=== PATIENT | female | born 1950 | race Caucasian/White ===

== ENCOUNTER 2017-06-11 20:19 | Emergency (ER) | payer OTHER ==
[~2017-06-11] VITALS: Ht 165.1 cm; Wt 74.4 kg
[~2017-06-11 20:19] MED LIST: AMLO-145 PO; BUPR150T11 PO; CYCL-319 PO; CYCL5TAB PO; HYDR-906 PO; IBUP-1542 PO; TEMA15CA6 PO; ZOF8 PO
[2017-06-11 20:29] VITALS: Ht 165.1 cm; Wt 74.4 kg
[2017-06-11] MEDS ORDERED: HYDROCODONE/APAP (5/325) TAB PO ONE (21:30)
[2017-06-11] MEDS ORDERED: IBUPROFEN 200 MG TAB PO ONE (21:30)
[2017-06-11] MEDS ORDERED: DIPHTH/TET/ACEL PERTUSS (ADULT) 0.5 ML VIAL IM* ONE (21:30)
--- NOTE | 2017-06-11 22:00 | RADRPT ---
PROCEDURE: XR Right Ankle. CLINICAL INDICATION: Trauma. Right ankle pain. TECHNIQUE: 3 views. Frontal, lateral, and oblique. COMPARISON: None. FINDINGS: There is an acute nondisplaced oblique fracture of the distal fibula with marked overlying soft tiss ue swelling. There is no other fracture and there is no dislocation. The soft tissues are otherwise normal. Articular surfaces are intact. There is no lytic or blastic lesion. There is no radiopaque foreign body. IMPRESSION: 1. Acute nondisplaced oblique fracture of the distal fibula with marked overlying soft tissue swell ing. 2. Otherwise unremarkable study. RPTAT: QQ .Jorge Luis Pendleton MD, MD Date Time Electronically viewed and signed by .Jorge Luis Pendleton MD, MD on 06/11/2017 22:00 .R/
--- NOTE | 2017-06-11 22:02 | RADRPT ---
PROCEDURE: XR Left Foot. CLINICAL INDICATION: Trauma. Left foot pain. TECHNIQUE: Three views. Frontal, lateral, and oblique. COMPARISON: None. FINDINGS: There is an acute minimally displaced fracture of the base of the fifth metatarsal. There is marked overlying soft tissue swelling. There is no other fracture and there is no dislocation. There is a small plantar calcaneal spur. Articular surfaces are otherwise intact. There is no lytic or blastic lesion. There is no radiopaque foreign body. IMPRESSION: 1. Acute minimally displaced fracture of the base of the fifth metatarsal with marked overlying sof t tissue swelling. 2. Small plantar calcaneal spur. 3. Otherwise unremarkable study. RPTAT: QQ .Jorge Luis Pendleton MD, MD Date Time Electronically viewed and signed by .Jorge Luis Pendleton MD, on 06/11/2017 22:02 .R/
[2017-06-11] MEDS ORDERED: HYDR-906 PO (22:17)
[2017-06-11] MEDS ORDERED: IBUP400T22 PO (22:17)
--- NOTE | 2017-06-11 22:24 | ERD ---
ER Documentation Chief Complaint Date/Time DATE: 06/11/17 TIME: 22:22 Chief Complaint s/p fall today, tripped, swollen right ankle, wound on right knee with pain HPI This 67-year-old female tripped after coming out of her doorway down some steps and complains of an abrasion on her right knee as well as right ankle pain and left foot pain. She has restricted range of motion weakness. There is no active bleeding. There is no history of head injury of neck pain or bowel bladder incontinence or additional injuries. ROS All systems reviewed and are negative except as per history of present illness. Medications Home Meds Active Scripts Hydrocodone/Acetaminophen (Belle 5-325 Tablet) 1 Each Tablet, 1 EACH PO QID, # 15 TAB Prov:RUSTY GOLDBERG MD 06/11/17 Ibuprofen* (Motrin*) 400 Mg Tab, 400 MG PO Q6, #20 TAB Prov:RUSTY GOLDBERG MD 06/11/17 Cyclobenzaprine Hcl* (Cyclobenzaprine Hcl*) 10 Mg Tablet, 10 MG PO TID, #15 TAB Prov:LAKEISHA WESLEY NP 09/02/16 Ibuprofen* (Motrin*) 600 Mg Tab, 600 MG PO Q6H Y for PAIN AND OR ELEVATED TEMP, #30 TAB Prov:LAKEISHA WESLEY NP 09/02/16 Hydrocodone/Acetaminophen (Belle 5-325 Tablet) 1 Each Tablet, 1 TAB PO Q6H Y for PAIN, #20 TAB Prov:LAKEISHA WESLEY NP 09/02/16 Reported Medications Amlodipine Besylate* (Amlodipine Besylate*) 5 Mg Tablet, 5 MG PO DAILY 12/22/14 Bupropion Hcl (Bupropion Hcl SR) 150 Mg Tablet.sa, 150 MG PO BID 12/22/14 Cyclobenzaprine Hcl* (Cyclobenzaprine Hcl*) 5 Mg Tablet, 5 MG PO QHS 12/22/14 Temazepam* (Restoril*) 15 Mg Capsule, 15 MG PO HS 12/22/14 Ondansetron Hcl* (Zofran*) 8 Mg Tab, 8 MG PO Q6H 12/22/14 Allergies Allergies: Coded Allergies: No Known Allergy (Unverified , 12/21/14) PMhx/Soc History of Surgery: Yes (TONSILECTOMY, RHINOPLASTY) Anesthesia Reaction: No Hx Neurological Disorder: No Hx Respiratory Disorders: No Hx Cardiac Disorders: Yes (HYPERTENSION) Hx Psychiatric Problems: No Hx Miscellaneous Medical Probl: Yes (DEPRESSION) Hx Alcohol Use: No Hx Substance Use: No Hx Tobacco Use: No Physical Exam Vitals Vital Signs Date Time Temp Pulse Resp B/P Pulse Ox O2 Delivery O2 Flow Rate FiO2 06/11/17 20:29 97.8 86 18 159/76 99 Physical Exam Const: [], [id number] Head: Atraumatic Eyes: Normal Conjunctiva ENT: Normal External Ears, Nose and Mouth. Neck: Full range of motion..~ No meningismus. Resp: Clear to auscultation bilaterally Cardio: Regular rate and rhythm, no murmurs Abd: Soft, non tender, non distended. Normal bowel sounds Skin: No petechiae or rashes Back: No midline or flank tenderness Ext: No cyanosis, or edema. Some generalized tenderness and swelling on the right distal fibular ankle area. There is tenderness in the left fifth metatarsal area with some mild swelling and bruising. There is no left ankle tenderness. There is no evidence of deficits or ischemia. Neur: Awake and alert Psych: Normal Mood and Affect Results 24 hrs Current Medications Medications (Trade) Dose Ordered Sig/Lito Route PRN Reason Start Time Stop Time Status Last Admin Dose Admin Acetaminophen/ Hydrocodone Bitart (Belle (5/325)) 1 tab ONCE ONCE PO 06/11/17 21:30 06/11/17 21:31 DC 06/11/17 21:43 Ibuprofen (Motrin) 400 mg ONCE ONCE PO 06/11/17 21:30 06/11/17 21:31 DC 06/11/17 21:38 Diphtheria/ Tetanus/Acell Pertussis (Adacel) 0.5 ml ONCE ONCE IM* 06/11/17 21:30 06/11/17 21:31 DC Procedures/MDM X-ray right ankle 3V Interpreted by me: Bones: There is nondisplaced fracture through the distal fibula Joints: No dislocation. Impression-nondisplaced right distal fibula fracture X-ray right foot 3V Interpreted by me: Bones: There is a minimally displaced left fifth metatarsal base fracture Joints: [No dislocation] Foreign body: [None]. Impression-minimally displaced left fifth metatarsal base fracture Patient is placed in bilateral walker boot. Patient is nervous intact after the boot. She is also given crutches questioning, Belle and ibuprofen for pain. Patient will be discharged home with orthopedic follow-up within the next week. She is advised she may need authorization from primary doctor for orthopedist visit. Should return otherwise for new or worsening symptoms. Right knee abrasion was cleansed and dressed. Patient was given a tetanus booster as well. Departure Diagnosis: Primary Impression: Foot fracture, left Encounter type: initial encounter Fracture type: closed Qualified Code: S92.902A - Foot fracture, left, closed, initial encounter Additional Impression: Ankle fracture Encounter type: initial encounter Fracture type: closed Laterality: right Qualified Code: S82.891A - Ankle fracture, right, closed, initial encounter Condition: Stable Patient Instructions: Fracture, Foot, Ankle Fracture (Distal Fibula), Closed Referrals: NEL SHETH MD,[facility] Hours: Thu-Thu 9:00 AM - 5:00 PM Additional Instructions: See orthopedist for further evaluation and treatment within the next week. May need authorization from primary care doctor. RUSTY GOLDBERG MD Jun 11, 2017 22:24
[2017-06-11 23:14] VITALS: BP 140/70; PULSE 78; RESP 16; TEMP 98.4
== END 2017-06-11 23:15 | disposition home or self-care (01) ==
LOC: FTE 20:19
DX: S92.902A Unspecified fracture of left foot, initial encounter for closed fracture (principal); S82.891A Other fracture of right lower leg, initial encounter for closed fracture; I10 Essential (primary) hypertension; W01.0XXA Fall on same level from slipping, tripping and stumbling without subsequent striking against object, initial encounter; Y92.9 Unspecified place or not applicable
CPT/HCPCS: 90715